=== PATIENT | male | born 1950 | race Caucasian/White ===

== ENCOUNTER 2021-12-02 10:00 | Inpatient (IN) | payer MEDICARE ==
[~2021-12-02] VITALS: Ht 177.8 cm; Wt 90.9 kg
[2021-12-02 11:04] LABS: BASOPHILS % (AUTO) 1.1 % (0.0-5.0); EOSINOPHILS % (AUTO) 4.3 % (0.0-8.0); HEMATOCRIT 36.5 % (42-54); LYMPHOCYTES % (AUTO) 29.7 % (21.0-51.0); MEAN CORPUSCULAR HEMOGLOBIN 28.7 pg (27.0-33.0); MEAN CORPUSCULAR HGB CONC 33.2 g/dL (32.0-36.0); MEAN CORPUSCULAR VOLUME 86.5 fL (79-99); MONOCYTES % (AUTO) 8.9 % (3.0-13.0); NEUTROPHILS % (AUTO) 54.6 % (40.0-77.0); PLATELET COUNT (AUTO) 157 K/uL (130-400); RED BLOOD CELL COUNT(AUTO) 4.22 MIL/uL (4.50-6.20); RED CELL DISTRIBUTION WIDTH 13.5 % (11.0-15.5); WHITE BLOOD COUNT (AUTO) 7.8 K/uL (4.8-10.8)
[2021-12-02 11:13] LABS: BILIRUBIN,TOTAL 0.5 mg/dL (0.2-1.0); CREATININE 1.3 mg/dL (0.5-1.5); POTASSIUM 4.8 mmol/L (3.5-5.1)
[2021-12-02 11:18] LABS: INR 0.94 (0.85-1.15); PROTHROMBIN TIME 10.3 SEC (9.6-11.6)
[2021-12-02 12:11] VITALS: BP 162/69
[2021-12-02] MEDS ORDERED: ASPI-1026 PO (13:35)
[2021-12-02] MEDS ORDERED: LISI10TA24 PO (14:21)
[2021-12-02] MEDS ORDERED: LOVA20TA3 PO (14:21)
[2021-12-02] MEDS ORDERED: GLIM4TAB36 PO (14:21)
[2021-12-02] MEDS ORDERED: CALC-190 PO (14:25)
[2021-12-03] VITALS (13 sets, daily range): BP systolic 117–145; BP diastolic 44–73
[2021-12-03] MEDS ORDERED: CEFAZOLIN SODIUM 1 GM VIAL IVP SCH (06:00)
[2021-12-03] MEDS ORDERED: 0.9%NACL 1000ML 1,000 ML IV ONE (08:19)
[2021-12-03] MEDS ORDERED: LIDOCAINE PF 100MG/5ML (2%) SYRINGE 5ML ONE (09:19)
[2021-12-03] MEDS ORDERED: ROCURONIUM 10MG/1ML SYR 10 MG/ML ML ONE ×2 (09:19→15:21)
[2021-12-03] MEDS ORDERED: MIDAZOLAM HCL 1 MG/ML 2ML VIAL ONE (09:19)
[2021-12-03] MEDS ORDERED: PROPOFOL 10 MG/ML 20ML VIAL IV ONE (09:19)
[2021-12-03] MEDS ORDERED: FENTANYL CITRATE PF 50 MCG/1 ML 2ML VIAL ONE (09:20)
[2021-12-03] MEDS ORDERED: LIDOCAINE 1%-EPI 1:100,000 20 ML VIAL IJ ONE (09:27)
[2021-12-03] MEDS ORDERED: CEFAZOLIN SODIUM 2 GM VIAL IV ONE ×2 (09:54→13:54)
[2021-12-03] MEDS ORDERED: FENTANYL CITRATE PF 50 MCG/1 ML 5ML AMP IV ONE (10:45)
[2021-12-03] MEDS ORDERED: EPHEDRINE SULFATE 50 MG/ML AMPULE ONE (15:21)
[2021-12-03] MEDS ORDERED: NEOSTIGMINE 5MG/5ML SYR IV ONE (16:32)
[2021-12-03] MEDS ORDERED: GLYCOPYRROLATE 1 MG/5 ML SYRINGE ONE (16:32)
[2021-12-03] MEDS ORDERED: ONDANSETRON 4MG INJ ONE (16:32)
[2021-12-03] MEDS ORDERED: BACITRACIN 28.4 GM OINT TP ONE (16:34)
[2021-12-03] MEDS ORDERED: SUCCINYLCHOLINE 200MG/10ML SYR ONE (16:44)
[2021-12-03] MEDS: 0.9%NACL 1000ML 1,000 ML IV SCH (17:00)
[2021-12-03] MEDS ORDERED: ONDANSETRON 4MG INJ IVP PRN (21:30)
[2021-12-03] MEDS ORDERED: MORPHINE 2 MG SYG IVP PRN (21:30)
[2021-12-03] MEDS ORDERED: MORPHINE 4 MG SYG IV PRN (21:30)
[2021-12-03] MEDS ORDERED: LORAZEPAM 2 MG/ML 1 ML VIAL IVP PRN (21:30)
[2021-12-03] MEDS: M.V.I. IV [ADULT] 10 ML, FOLIC ACID 1 MG, THIAMINE HCL 100 MG in 0.9%NACL 1000ML 1,000 ML IV SCH (22:00)
[2021-12-03] MEDS ORDERED: COMPOUND IV REFRIGERATED 1 EACH IVSOLN MISC PRN (22:00)
[2021-12-04] VITALS (18 sets, daily range): BP systolic 111–154; BP diastolic 47–89
[2021-12-04] MEDS: 0.9%NACL 1000ML 1,000 ML IV SCH ×3 (02:42→21:23)
[2021-12-04 04:58] LABS: BASOPHILS % (AUTO) 0.2 % (0.0-5.0); HEMATOCRIT 33.5 % (42-54); LYMPHOCYTES % (AUTO) 7.5 % (21.0-51.0); MEAN CORPUSCULAR HEMOGLOBIN 28.6 pg (27.0-33.0); MEAN CORPUSCULAR HGB CONC 32.5 g/dL (32.0-36.0); MEAN CORPUSCULAR VOLUME 87.9 fL (79-99); MONOCYTES % (AUTO) 7.1 % (3.0-13.0); NEUTROPHILS % (AUTO) 84.3 % (40.0-77.0); PLATELET COUNT (AUTO) 143 K/uL (130-400); RED BLOOD CELL COUNT(AUTO) 3.81 MIL/uL (4.50-6.20); RED CELL DISTRIBUTION WIDTH 13.7 % (11.0-15.5)
[2021-12-04 04:59] LABS: HEMOGLOBIN A1C 6.6 % (4.0-6.0)
[2021-12-04 05:46] LABS: BILIRUBIN,DIRECT 0.1 mg/dL (0.0-0.3); BILIRUBIN,TOTAL 0.3 mg/dL (0.2-1.0); CREATININE 1.1 mg/dL (0.5-1.5); POTASSIUM 4.6 mmol/L (3.5-5.1); THYROID STIMULATING HORMONE 0.57 uIU/mL (0.36-3.74); TOTAL PROTEIN, SERUM 6.5 g/dL (6.0-8.3)
[2021-12-04] MEDS: M.V.I. IV [ADULT] 10 ML, FOLIC ACID 1 MG, THIAMINE HCL 100 MG in 0.9%NACL 1000ML 1,000 ML IV SCH (07:50)
[2021-12-04] MEDS: NICOTINE 14 MG/ 24 HR PATCH TD SCH (07:58)
[2021-12-04] MEDS: THIAMINE HCL 100 MG/ML 2ML VIAL IVP SCH ×2 (08:23→08:40)
[2021-12-04] MEDS ORDERED: THIAMINE HCL 100 MG/ML 2ML VIAL IM SCH (09:00)
[2021-12-04] MEDS ORDERED: CHLORDIAZEPOXIDE HCL 25 MG CAP PO PRN (09:30)
[2021-12-04] MEDS: IPRATROPIUM/ALBUTEROL SULFATE 3 ML SOLUTION IH SCH ×2 (11:28→19:12)
[2021-12-05] VITALS (8 sets, daily range): BP systolic 124–179; BP diastolic 65–89
[2021-12-05] MEDS: IPRATROPIUM/ALBUTEROL SULFATE 3 ML SOLUTION IH SCH ×5 (01:24→23:02)
[2021-12-05] MEDS: THIAMINE HCL 100 MG/ML 2ML VIAL IVP SCH (08:38)
[2021-12-05] MEDS: NICOTINE 14 MG/ 24 HR PATCH TD SCH (08:39)
[2021-12-05] MEDS: M.V.I. IV [ADULT] 10 ML, FOLIC ACID 1 MG, THIAMINE HCL 100 MG in 0.9%NACL 1000ML 1,000 ML IV SCH (09:00)
[2021-12-05] MEDS: AMOX/CLAV 500/125MG TAB PO SCH ×2 (11:37→21:44)
[2021-12-05] MEDS: 0.9%NACL 1000ML 1,000 ML IV SCH (19:33)
[2021-12-05] MEDS: HYDRALAZINE 20MG/ML VIAL IV PRN (20:56)
[2021-12-06 00:48] VITALS: BP 148/83
[2021-12-06] MEDS: HYDRALAZINE 20MG/ML VIAL IV PRN (00:55)
[2021-12-06 03:54] LABS: BASOPHILS % (AUTO) 0.5 % (0.0-5.0); EOSINOPHILS % (AUTO) 1.1 % (0.0-8.0); HEMATOCRIT 33.1 % (42-54); LYMPHOCYTES % (AUTO) 13.8 % (21.0-51.0); MEAN CORPUSCULAR HEMOGLOBIN 28.6 pg (27.0-33.0); MEAN CORPUSCULAR HGB CONC 31.7 g/dL (32.0-36.0); MEAN CORPUSCULAR VOLUME 90.2 fL (79-99); MONOCYTES % (AUTO) 11.1 % (3.0-13.0); PLATELET COUNT (AUTO) 144 K/uL (130-400); RED BLOOD CELL COUNT(AUTO) 3.67 MIL/uL (4.50-6.20); RED CELL DISTRIBUTION WIDTH 13.7 % (11.0-15.5); WHITE BLOOD COUNT (AUTO) 11.9 K/uL (4.8-10.8)
[2021-12-06 04:06] LABS: CREATININE 0.9 mg/dL (0.5-1.5); POTASSIUM 3.8 mmol/L (3.5-5.1)
[2021-12-06 04:46] VITALS: BP 154/74
[2021-12-06] MEDS: 0.9%NACL 1000ML 1,000 ML IV SCH (05:28)
[2021-12-06] MEDS: IPRATROPIUM/ALBUTEROL SULFATE 3 ML SOLUTION IH SCH ×4 (06:58→23:53)
[2021-12-06 07:33] VITALS: BP 135/63
[2021-12-06] MEDS ORDERED: LOPERAMIDE 1 MG/7.5 ML UDCUP ONE (08:20)
[2021-12-06] MEDS: NICOTINE 14 MG/ 24 HR PATCH TD SCH (08:51)
[2021-12-06] MEDS: THIAMINE HCL 100 MG/ML 2ML VIAL IVP SCH (08:51)
[2021-12-06] MEDS: M.V.I. IV [ADULT] 10 ML, FOLIC ACID 1 MG, THIAMINE HCL 100 MG in 0.9%NACL 1000ML 1,000 ML IV SCH (09:00)
[2021-12-06] MEDS: AMOX/CLAV 500/125MG TAB PO SCH ×2 (09:08→21:34)
[2021-12-06 11:05] VITALS: BP 144/77
[2021-12-06 15:28] VITALS: BP 132/68
[2021-12-06 19:51] VITALS: BP 151/78
[2021-12-07] VITALS (8 sets, daily range): BP systolic 118–155; BP diastolic 62–83
[2021-12-07] MEDS ORDERED: ENOXAPARIN SODIUM 40 MG/0.4 ML SYRINGE SQ ONE (00:30)
[2021-12-07] MEDS ORDERED: FUROSEMIDE 20MG VIAL IV ONE (00:30)
[2021-12-07] MEDS: 0.9%NACL 1000ML 1,000 ML IV SCH ×3 (01:00→19:49)
[2021-12-07] MEDS ORDERED: FUROSEMIDE 20MG VIAL ONE (06:14)
[2021-12-07] MEDS: IPRATROPIUM/ALBUTEROL SULFATE 3 ML SOLUTION IH SCH ×4 (06:35→23:26)
[2021-12-07] MEDS: AMOX/CLAV 500/125MG TAB PO SCH ×2 (10:08→19:49)
[2021-12-07] MEDS: NICOTINE 14 MG/ 24 HR PATCH TD SCH (10:08)
[2021-12-07] MEDS: FAMOTIDINE 20MG TAB PO SCH (10:09)
[2021-12-07] MEDS: THIAMINE HCL 100 MG/ML 2ML VIAL IVP SCH (10:09)
[2021-12-07] MEDS: ENOXAPARIN SODIUM 40 MG/0.4 ML SYRINGE SQ SCH (10:10)
[2021-12-07] MEDS: OXYMETAZOLINE HCL SPRAY 15 ML BOTTLE EN SCH ×2 (14:12→19:49)
[2021-12-07] MEDS ORDERED: PHARMACY COMMUNICATION MISC SCH (15:00)
[2021-12-08 03:30] VITALS: BP 140/55
[2021-12-08] MEDS: IPRATROPIUM/ALBUTEROL SULFATE 3 ML SOLUTION IH SCH ×3 (06:25→18:18)
[2021-12-08 08:00] VITALS: BP 144/62
[2021-12-08] MEDS: THIAMINE HCL 100 MG/ML 2ML VIAL IVP SCH (08:39)
[2021-12-08] MEDS: AMOX/CLAV 500/125MG TAB PO SCH ×2 (08:39→20:16)
[2021-12-08] MEDS: NICOTINE 14 MG/ 24 HR PATCH TD SCH (08:39)
[2021-12-08] MEDS: ENOXAPARIN SODIUM 40 MG/0.4 ML SYRINGE SQ SCH (08:39)
[2021-12-08] MEDS: FAMOTIDINE 20MG TAB PO SCH (08:39)
[2021-12-08] MEDS: 0.9%NACL 1000ML 1,000 ML IV SCH (08:46)
[2021-12-08] MEDS: OXYMETAZOLINE HCL SPRAY 15 ML BOTTLE EN SCH ×2 (08:46→21:09)
[2021-12-08 12:00] VITALS: BP 150/66
[2021-12-08 15:59] VITALS: BP 160/65
[2021-12-08 19:00] VITALS: BP 146/62
[2021-12-09] VITALS: BP 158/73
[2021-12-09] MEDS: IPRATROPIUM/ALBUTEROL SULFATE 3 ML SOLUTION IH SCH ×2 (01:19→06:12)
[2021-12-09 04:00] VITALS: BP 141/61
[2021-12-09 05:17] LABS: BASOPHILS % (AUTO) 0.7 % (0.0-5.0); EOSINOPHILS % (AUTO) 2.9 % (0.0-8.0); HEMATOCRIT 28.2 % (42-54); LYMPHOCYTES % (AUTO) 19.2 % (21.0-51.0); MEAN CORPUSCULAR HEMOGLOBIN 28.3 pg (27.0-33.0); MEAN CORPUSCULAR HGB CONC 32.6 g/dL (32.0-36.0); MEAN CORPUSCULAR VOLUME 86.8 fL (79-99); MONOCYTES % (AUTO) 11.4 % (3.0-13.0); NEUTROPHILS % (AUTO) 63.7 % (40.0-77.0); PLATELET COUNT (AUTO) 152 K/uL (130-400); RED BLOOD CELL COUNT(AUTO) 3.25 MIL/uL (4.50-6.20); RED CELL DISTRIBUTION WIDTH 13.2 % (11.0-15.5)
[2021-12-09 05:35] LABS: ALBUMIN 2.6 g/dL (3.5-5.0); BILIRUBIN,TOTAL 0.7 mg/dL (0.2-1.0); CREATININE 0.8 mg/dL (0.5-1.5); POTASSIUM 3.5 mmol/L (3.5-5.1); TOTAL PROTEIN, SERUM 6.4 g/dL (6.0-8.3)
[2021-12-09 08:00] VITALS: BP 144/62
[2021-12-09] MEDS: AMOX/CLAV 500/125MG TAB PO SCH ×2 (10:45→20:41)
[2021-12-09] MEDS: FAMOTIDINE 20MG TAB PO SCH (10:45)
[2021-12-09] MEDS: THIAMINE HCL 100 MG/ML 2ML VIAL IVP SCH (10:46)
[2021-12-09] MEDS: OXYMETAZOLINE HCL SPRAY 15 ML BOTTLE EN SCH ×2 (10:47→20:42)
[2021-12-09] MEDS: NICOTINE 14 MG/ 24 HR PATCH TD SCH (10:48)
[2021-12-09] MEDS: ENOXAPARIN SODIUM 40 MG/0.4 ML SYRINGE SQ SCH (10:51)
[2021-12-09 11:51] VITALS: BP 144/63
[2021-12-09 16:00] VITALS: BP 158/66
[2021-12-09 19:00] VITALS: BP 144/69
[2021-12-09] MEDS ORDERED: ACETAMINOPHEN 325 MG TAB PO PRN (22:30)
[2021-12-10] VITALS: BP 139/59
[2021-12-10 04:00] VITALS: BP 146/62
[2021-12-10] MEDS: IPRATROPIUM/ALBUTEROL SULFATE 3 ML SOLUTION IH SCH ×2 (06:19→11:11)
[2021-12-10 08:00] VITALS: BP 168/79
[2021-12-10] MEDS: NICOTINE 14 MG/ 24 HR PATCH TD SCH (09:00)
[2021-12-10] MEDS: OXYMETAZOLINE HCL SPRAY 15 ML BOTTLE EN SCH (09:00)
[2021-12-10] MEDS: THIAMINE HCL 100 MG/ML 2ML VIAL IVP SCH (09:00)
[2021-12-10] MEDS: FAMOTIDINE 20MG TAB PO SCH (11:23)
[2021-12-10] MEDS: AMOX/CLAV 500/125MG TAB PO SCH (11:23)
[2021-12-10] MEDS: ENOXAPARIN SODIUM 40 MG/0.4 ML SYRINGE SQ SCH (11:26)
[2021-12-10 12:00] VITALS: BP 146/72
[2021-12-10] MEDS ORDERED: AMOX1TAB15 PO (15:37)
[2021-12-10 16:00] VITALS: BP 137/64
== END 2021-12-10 17:15 | disposition home or self-care (01) | DRG 141 ==
LOC: EDSTATUS 10:00 → DAHIP 12-03 06:32 → 2CH 12-03 17:15 → 2DH 12-04 18:27 → 3CH 12-07 15:33
PROVIDERS: ADMIT Internal Medicine; ATTEND Internal Medicine
PROC: 0NBT0ZZ Excision of Right Mandible, Open Approach (ICD-10-PCS; 2021-12-03)
PROC: 0JX10ZZ Transfer Face Subcutaneous Tissue and Fascia, Open Approach (ICD-10-PCS; 2021-12-03)
PROC: 0CDXXZ1 Extraction of Lower Tooth, Multiple, External Approach (ICD-10-PCS; 2021-12-03)
PROC: 07T10ZZ Resection of Right Neck Lymphatic, Open Approach (ICD-10-PCS; principal; 2021-12-03 09:31)
DX: C06.9 Malignant neoplasm of mouth, unspecified (principal); E87.1 Hypo-osmolality and hyponatremia; F10.10 Alcohol abuse, uncomplicated; F17.200 Nicotine dependence, unspecified, uncomplicated; Z20.822 Contact with and (suspected) exposure to COVID-19; F19.90 Other psychoactive substance use, unspecified, uncomplicated; Z79.82 Long term (current) use of aspirin; Z79.84 Long term (current) use of oral hypoglycemic drugs; Z79.899 Other long term (current) drug therapy
CPT/HCPCS: 36415; 71045; 80048; 80053; 80061; 80076; 82140; 82948; 83036; 84443; 85025; 85610; 85730; 87635; 93005; 94640; 94664; 97039; A4344; G0378; J0330; J0360; J0690; J1650; J1940; J2001; J2250; J2405; J2704; J2710; J3010; J3411; J3490; J7030